=== PATIENT | female | born 2000 | race African-American/Black ===

== ENCOUNTER → 2024-02-10 | Day surgery (SDC) | payer BC ==
[~2024-02-10] MED LIST: LIDOCAINE HCL 2% LOCAL INJ 5 ML SDV VIAL INJ ONE; PROPOFOL IV EMULSION 10 MG/ML 20 ML VIAL ONE
[2024-02-10] MEDS: LACTATED RINGER'S 1,000 ML ONE (06:44)
[2024-02-10 07:41] VITALS: TEMP 97.1
[2024-02-10 07:55] VITALS: BP 158/100; PULSE 94; RESP 16; O2SAT 98
== END | disposition home or self-care (01) ==
LOC: ENDO 05:44
PROVIDERS: ATTEND Surgery
DX: K21.9 Gastro-esophageal reflux disease without esophagitis (principal); K44.9 Diaphragmatic hernia without obstruction or gangrene; K20.90 Esophagitis, unspecified without bleeding; K31.89 Other diseases of stomach and duodenum; I10 Essential (primary) hypertension; E66.01 Morbid (severe) obesity due to excess calories; Z88.6 Allergy status to analgesic agent; Z68.43 Body mass index [BMI] 50.0-59.9, adult
CPT/HCPCS: 43239; 81025; 88305; J2003; J2704; J7121